=== PATIENT | female | born 1975 | race Caucasian/White ===

== ENCOUNTER 2016-07-18 13:14 | Emergency (ER) | payer OTHER ==
[~2016-07-18 13:14] MED LIST: NORCO 7.5-3251 EACH PO
== END 2016-07-18 16:24 | disposition home or self-care (01) ==
LOC: FER 13:14
DX: T15.02XA Foreign body in cornea, left eye, initial encounter (principal); F17.210 Nicotine dependence, cigarettes, uncomplicated
CPT/HCPCS: 99283

== ENCOUNTER 2020-08-05 04:49 | Emergency (ER) | payer OTHER ==
[~2020-08-05 04:49] MED LIST changes: +AMOXICILLIN500 MG PO; +TYLENOL #31 EACH PO
[2020-08-05] MEDS ORDERED: MEDROL 4MG DOSEP4 MG PO (05:55)
[2020-08-05] MEDS ORDERED: ROBAXIN750 MG PO (05:55)
[2020-08-05] MEDS ORDERED: NORCO 5-325 TA1 EACH PO (05:55)
== END 2020-08-05 06:05 | disposition home or self-care (01) ==
LOC: FER 04:49
DX: M51.17 Intervertebral disc disorders with radiculopathy, lumbosacral region (principal); F17.210 Nicotine dependence, cigarettes, uncomplicated; Z98.890 Other specified postprocedural states
CPT/HCPCS: 99283; J7512

== ENCOUNTER 2020-10-31 02:51 | Emergency (ER) | payer OTHER ==
[~2020-10-31 02:51] MED LIST changes: +MEDROL 4MG DOSEP4 MG PO; +NORCO 5-325 TA1 EACH PO; +ROBAXIN750 MG PO
[2020-10-31 03:09] LABS: BASOPHIL 0.4 % (0-2); EOSINOPHIL 0.5 % (0-5); HCT 42.7 % (37.0-47.0); HGB 14.4 g/dl (12.5-16.0); LYMPHOCYTE 36.4 % (15-48); MCH 32.1 pg (25.0-31.0); MCHC 33.7 g/dL (32.0-36.0); MCV 95.1 fL (78.0-100.0); MONOCYTE 6.4 % (0-12); MPV 9.9 fL (6.0-9.5); NEUTROPHIL 55.8 % (41-80); NRBC 0; PLT 383 K/uL (150-400); RBC 4.49 M/uL (4.20-5.40); RDW 13.8 % (11.5-14.0)
[2020-10-31 03:43] LABS: ALBUMIN 4.5 g/dL (3.4-5.0); BILIRUBIN - TOTAL 0.4 mg/dL (0.2-1.0); BUN/CREAT RATIO (CALC) 7.5 RATIO; CREATININE 0.67 mg/dL (0.51-0.95); GLOBULIN (CALCULATION) 4.2 g/dL; POTASSIUM 2.8 mmol/L (3.5-5.1); TOTAL PROTEIN 8.7 g/dL (6.4-8.2)
[2020-10-31 05:28] LABS: BILIRUBIN NEGATIVE (NEGATIVE); BLOOD NEGATIVE Ery/uL (NEGATIVE); CLARITY CLEAR (CLEAR); COLOR YELLOW (YELLOW); GLUCOSE (U) NORMAL (NORMAL); LEUKOCYTES NEGATIVE Leu/uL (NEGATIVE); NITRITE NEGATIVE (NEGATIVE); PROTEIN NEGATIVE (NEGATIVE); SPECIFIC GRAVITY <=1.005 (1.001-1.030); UROBILINOGEN 0.2 mg/dL (0.2-1.0); pH 5.5 (5.0-9.0)
[2020-10-31 05:30] LABS: MARIJUANA (THC) NEGATIVE (NEGATIVE)
[2020-10-31 05:31] LABS: AMPHETAMINES NEGATIVE (NEGATIVE); BARBITURATES NEGATIVE (NEGATIVE); ECSTASY (MDMA) NEGATIVE (NEGATIVE); METHADONE NEGATIVE (NEGATIVE); OPIATES POSITIVE (NEGATIVE); OXYCODONE NEGATIVE (NEGATIVE)
[2020-10-31] MEDS ORDERED: K-DUR20 MEQ PO (05:33)
== END 2020-10-31 10:05 | disposition home or self-care (01) ==
LOC: FER 02:51
PROVIDERS: Emergency Medicine
DX: R07.89 Other chest pain (principal); R91.8 Other nonspecific abnormal finding of lung field; I25.2 Old myocardial infarction; I25.10 Atherosclerotic heart disease of native coronary artery without angina pectoris; F17.200 Nicotine dependence, unspecified, uncomplicated
CPT/HCPCS: 36415; 71045; 71275; 80053; 80305; 81003; 82550; 84484; 85025; 85379; 93005; J1885; J2060; J2270; J3480; J7030; Q9967

== ENCOUNTER 2021-06-15 22:36 | Emergency (ER) | payer OTHER ==
[~2021-06-15 22:36] MED LIST changes: +K-DUR20 MEQ PO
== END 2021-06-16 00:43 | disposition home or self-care (01) ==
LOC: FER 22:36
DX: M79.671 Pain in right foot (principal); M79.672 Pain in left foot; M79.89 Other specified soft tissue disorders; M79.81 Nontraumatic hematoma of soft tissue; F17.210 Nicotine dependence, cigarettes, uncomplicated
CPT/HCPCS: 73630; J1885